=== PATIENT | male | born 1960 | race Caucasian/White ===

== ENCOUNTER 2018-11-29 13:29 | Outpatient (CLI) | payer BC ==
--- NOTE | 2018-11-29 15:21 | RAD ---
4 VIEWS RIGHT WRIST: Date: 11/29/18 COMPARISON: None. HISTORY: Wrist pain. Previous wrist fracture. FINDINGS: 4 views of the right wrist show no evidence of acute fracture or dislocation. 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 There is joint space narrowing of the radiocarpal joint c onsistent with osteoarthritis. IMPRESSION: 1. No evidence of acute osseous abnormality. 2. 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 POS: C
== END 2018-11-29 13:30 | disposition home or self-care (01) ==
LOC: MADRAD 13:29
PROVIDERS: ATTEND Nurse Practitioner Family
DX: M25.531 Pain in right wrist (principal); M19.031 Primary osteoarthritis, right wrist; Z87.311 Personal history of (healed) other pathological fracture

== ENCOUNTER 2021-12-14 20:10 | Emergency (ER) | payer BC ==
[~2021-12-14 20:10] MED LIST: Sodium Chloride 0.9% 1,000 ML BAG ONE
[2021-12-14] MEDS ORDERED: EPINEPHrine 1 MG/10 ML Abboject SYRINGE IVP ONE ×2 (20:11)
[2021-12-14] MEDS ORDERED: Calcium Chloride 1 GM/10 ML Abboject SYRINGE IVP ONE (20:11)
[2021-12-14] MEDS ORDERED: Sodium Bicarb 50 MEQ/50 ML Abboject 8.4% SYRINGE IVP ONE (20:11)
== END 2021-12-14 22:27 | disposition expired ==
LOC: MADERS 20:10
DX: I26.99 Other pulmonary embolism without acute cor pulmonale (principal); I10 Essential (primary) hypertension; K21.9 Gastro-esophageal reflux disease without esophagitis; E78.5 Hyperlipidemia, unspecified
CPT/HCPCS: 92950; 96374; 96375; J0171; J7050